=== PATIENT | male | born 1995 | race American Indian/Alaskan Native ===

== ENCOUNTER 2020-06-09 08:47 | Emergency (ER) | payer OTHER ==
[2020-06-09] MEDS ORDERED: ONDANSETRON 4 MG/2 ML INJ IV ONE (11:46)
[2020-06-09] MEDS ORDERED: LOPERAMIDE 2 MG CAP PO ONE (11:46)
[2020-06-09] MEDS ORDERED: FAMOTIDINE 20 MG/2 ML INJ IV ONE (11:46)
[2020-06-09] MEDS ORDERED: HYOSCYAMINE SUBL 0.125 MG TAB SL ONE (11:46)
[2020-06-09] MEDS ORDERED: SODIUM CHLORIDE 0.9% 1000 ML 1,000 ML IV ONE (11:46)
--- NOTE | 2020-06-09 11:59 | Emergency Department Report ---
ED N/V/D HPI - General Chief complaint: Nausea/Vomiting/Diarrhea Stated complaint: VOMITING, FEVER, BLOOD IN STOOL Time Seen by Provider: 06/09/20 10:21 Source: patient Mode of arrival: Ambulatory Limitations: No Limitations - History of Present Illness Initial comments: The patient was evaluated in the emergency department for symptoms described in the history of present illness. He/she was evaluated in the context of the global COVID-19 pandemic, which necessitated consideration that the patient might be at risk for infection with the virus that causes COVID-19. Institutional protocols and algorithms that pertain to the evaluation of patients at risk for COVID-19 are in a state of rapid change based on information released by regulatory bodies including the CDC and federal and state organizations. These policies and algorithms were followed during the patient's care in the emergency department. Please note that these policies, procedures and recommendations changed on a rapid basis. 24-year-old -[place] male presents to the emergency room for nausea vomiting diarrhea and had a fever last night. Patient reports he came last night but left without being seen. Patient reports back pain nausea vomiting bloody diarrhea. He denies smoking cigarettes smoking weed and does not drink alcohol. He states that he has diffuse abdominal pain worse with bowel movements. Unaware of any sick contact. Patient reports that he took Pepto- Bismol but vomited up. Denies any past medical history currently takes no medications on a daily basis and no known drug allergies. MD complaint: nausea, vomiting, diarrhea Onset/Timin -: days(s) Description of Vomiting: food contents, watery Description of Diarrhea: bloody Associated Abdominal Pain: Yes Location: diffuse - Related Data Previous Rx's Medication Instructions Recorded Last Taken Type levoFLOXacin [Levaquin TAB] 500 mg PO QDAY #7 tablet 06/09/20 Unknown Rx metroNIDAZOLE [Flagyl] 500 mg PO Q12HR 7 Days #14 tab 06/09/20 Unknown Rx Allergies Allergy/AdvReac Type Severity Reaction Status Date / Time No Known Allergies Allergy Unverified 06/09/20 08:49 ED Review of Systems ROS: Stated complaint: VOMITING, FEVER, BLOOD IN STOOL Other details as noted in HPI ED Past Medical Hx - Past Medical History Previous Medical History?: No - Surgical History Past Surgical History?: No - Social History Smoking Status: Never Smoker Substance Use Type: None - Medications Home Medications: Home Medications Medication Instructions Recorded Confirmed Last Taken Type levoFLOXacin [Levaquin TAB] 500 mg PO QDAY #7 tablet 06/09/20 Unknown Rx metroNIDAZOLE [Flagyl] 500 mg PO Q12HR 7 Days #14 tab 06/09/20 Unknown Rx ED Physical Exam - General Limitations: No Limitations ED Course Vital Signs 06/09/20 06/09/20 06/09/20 08:53 13:15 15:28 Temperature 98.8 F 98.8 F Pulse Rate 99 H 106 H Respiratory 16 16 19 Rate Blood Pressure 117/60 Blood Pressure 138/70 [Left] O2 Sat by Pulse 97 100 Oximetry ED Medical Decision Making - Lab Data Result diagrams: 06/09/20 13:24 06/09/20 11:45 - Radiology Data Radiology results: report reviewed Referring Physician:JOSE GUADALUPE LOYOLAPatient Name:TAYA ASTORGAPatient ID:[id number] of :[id number]:MaleAccession:[id number] Date :[id number] Status:[place] [address] Cat Scan Report Signed Patient: TAYA ASTORGA MR#: [id number] 3 : 1995 Acct:[id number] Age/Sex: 24 / M ADM Date: 06/09/20 Loc: ED Attending Dr: Ordering Physician: MARA LORENZ Date of Service: 06/09/20 Procedure(s): CT abdomen pelvis w con Accession Number(s): [id number] cc: MARA LORENZ CT ABDOMEN AND PELVIS WITH CONTRAST INDICATION / CLINICAL INFORMATION: Abdominal pain with blood in stool. TECHNIQUE: Axial CT images were obtained through the abdomen and pelvis after 100 cc Omnipaque [address] scans at this location are performed using CT dose reduction for ALARA by means of automated exposure control. COMPARISON: None available. FINDINGS: LOWER CHEST: No significant abnormality. LIVER: No significant abnormality. GALLBLADDER: No significant abnormality. BILE DUCTS: No significant abnormality. PANCREAS: No significant abnormality. SPLEEN: No significant abnormality. ADRENALS: No significant abnormality. RIGHT KIDNEY / URETER: No significant abnormality. LEFT KIDNEY / URETER: No significant abnormality. STOMACH / SMALL BOWEL: No significant abnormality. COLON: The left colon is collapsed, limiting evaluation. There is mild to moderate generalized thickening of the colon. No other significant abnormality. APPENDIX: No significant abnormality. PERITONEUM: No free fluid. No free air. No fluid collection. LYMPH NODES: Shotty mesenteric nodes are seen in the right lower quadrant. No other significant adenopathy. AORTA / ARTERIES: No significant abnormality. IVC / VEINS: No significant abnormality. URINARY BLADDER: No significant abnormality. REPRODUCTIVE ORGANS: No significant abnormality. ADDITIONAL FINDINGS: None. SKELETAL SYSTEM: No significant abnormality. IMPRESSION: Uncomplicated acute rodriguez-colitis. Signer Name: Atif Brandt MD Signed: 06/09/2020 3:45 PM Workstation Name: [id number] Transcribed By: ADRIAN Dictated By: Atif Brandt MD Electronically Authenticated By: Atif Brandt MD Signed Date/Time: 06/09/201544 DD/ 40 TD/TT: - Medical Decision Making 24-year-old -[place] male presents to the emergency room for nausea vomiting diarrhea and had a fever last night. Patient reports he came last night but left without being seen. Patient reports back pain nausea vomiting bloody diarrhea. He denies smoking cigarettes smoking weed and does not drink alcohol. He states that he has diffuse abdominal pain worse with bowel movements. Unaware of any sick contact. Patient reports that he took Pepto- Bismol but vomited up. Denies any past medical history currently takes no medications on a daily basis and no known drug allergies. CT scan shows uncomplicated rodriguez colitis. Will place patient on Levaquin and Flagyl. Patient was given IV fluids Levsin Pepcid during his ER visit. Critical care attestation.: If time is entered above; I have spent that time in minutes in the direct care of this critically ill patient, excluding procedure time. ED Disposition Clinical Impression: Pancolitis Disposition: DC-01 TO HOME OR SELFCARE Is pt being admited?: No Does the pt Need Aspirin: No Condition: Stable Instructions: Colitis Additional Instructions: CT scan shows you have colitis which is infection or inflammation of your colon. Is very important that she complete the antibiotics take the Tylenol or ibuprofen as needed for pain management. It is very important for you to follow-up with integrated program teacher. Increase your water intake advance your diet as tolerated. Prescriptions: metroNIDAZOLE [Flagyl] 500 mg PO Q12HR 7 Days #14 tab levoFLOXacin [Levaquin TAB] 500 mg PO QDAY #7 tablet Referrals: PRIMARY CARE, [Primary Care Provider] - 3-5 Days [facility] [Provider Group] - 3-5 Days Forms: Work/School Release Form(ED)
[2020-06-09 14:10] LABS: Basophils % (Auto) 0.1 % (0.0-1.8); Eosinophils % (Auto) 0.1 % (0.0-4.3); Hematocrit 45.9 % (35.5-45.6); Hemoglobin 15.7 gm/dl (11.8-15.2); Lymphocytes # (Auto) 0.3 K/mm3 (1.2-5.4); Lymphocytes % (Auto) 5.3 % (13.4-35.0); Mean Corpuscular HGB Conc 34 % (32-34); Mean Corpuscular Volume 93 fl (84-94); Monocytes # (Auto) 0.6 K/mm3 (0.0-0.8); Monocytes % (Auto) 11.3 % (0.0-7.3); Platelet Count 189 K/mm3 (140-440); Red Blood Count 4.93 M/mm3 (3.65-5.03); Red Cell Distribution Width 12.8 % (13.2-15.2)
[2020-06-09 14:33] LABS: Alanine Aminotransferase 10 units/L (7-56); Albumin 4.6 g/dL (3.9-5); BUN/Creatinine Ratio 17; Blood Urea Nitrogen 15 mg/dL (9-20); Calcium 9.8 mg/dL (8.4-10.2); Hemolysis Index 5
[2020-06-09 15:30] VITALS: BP 138/70
--- NOTE | 2020-06-09 15:49 | Cat Scan Report ---
CT ABDOMEN AND PELVIS WITH CONTRAST INDICATION / CLINICAL INFORMATION: Abdominal pain with blood in stool. TECHNIQUE: Axial CT images were obtained through the abdomen and pelvis after 100 cc Omnipaque [address] scans at this location are performed using CT dose reduction for ALARA by means of automated exposure control. COMPARISON: None available. FINDINGS: LOWER CHEST: No significant abnormality. LIVER: No significant abnormality. GALLBLADDER: No significant abnormality. BILE DUCTS: No significant abnormality. PANCREAS: No significant abnormality. SPLEEN: No significant abnormality. ADRENALS: No significant abnormality. RIGHT KIDNEY / URETER: No significant abnormality. LEFT KIDNEY / URETER: No significant abnormality. STOMACH / SMALL BOWEL: No significant abnormality. COLON: The left colon is collapsed, limiting evaluation. There is mild to moderate generalized thicke eduardo of the colon. No other significant abnormality. APPENDIX: No significant abnormality. PERITONEUM: No free fluid. No free air. No fluid collection. LYMPH NODES: Shotty mesenteric nodes are seen in the right lower quadrant. No other significant adeno jose. AORTA / ARTERIES: No significant abnormality. IVC / VEINS: No significant abnormality. URINARY BLADDER: No significant abnormality. REPRODUCTIVE ORGANS: No significant abnormality. ADDITIONAL FINDINGS: None. SKELETAL SYSTEM: No significant abnormality. IMPRESSION: Uncomplicated acute rodriguez-colitis. Signer Name: Atif Brandt MD Signed: 06/09/2020 3:45 PM Workstation Name: [id number]
[2020-06-09 15:56] LABS: Mucus,Urine 3+ /HPF
[2020-06-09 16:18] LABS: Color,Urine Yellow (Yellow)
[2020-06-09 16:19] LABS: Blood,Urine Small (Negative); Urobilinogen,Urine < 2.0 mg/dL (<2.0)
== END 2020-06-09 16:17 | disposition home or self-care (01) ==
LOC: ED 08:47
DX: K51.00 Ulcerative (chronic) pancolitis without complications (principal); Z79.899 Other long term (current) drug therapy
CPT/HCPCS: 36415; 74177; 80053; 81001; 82270; 83690; 85007; 85025; 87045; 96361; 96374; 96375; 99284; J2405; J7030; Q9967